=== PATIENT | male | born 1980 | race African-American/Black ===

== ENCOUNTER 2016-10-07 00:34 | Emergency (ER) | payer SELFPAY ==
[~2016-10-07 00:34] MED LIST: Z.0.NO CURRENT MEDS
[2016-10-07 00:38] VITALS: BP 181/114; PULSE 97; RESP 15; TEMP 99; O2SAT 100
[2016-10-07] MEDS ORDERED: SODIUM CHLOR 0.9% 1000 ML INJ 1,000 ML IV SCH (03:35)
--- NOTE | 2016-10-07 03:39 | PD ---
HPI Chief Complaint: Abdominal Pain Time Seen by Provider: 03:31 Travel History International Travel<30 days: No Contact w/Intl Traveler<30days: No History of Present Illness HPI 36-year-old male here for evaluation of epigastric abdominal pain. The patient reports having this pain for last 2 months which she describes as sharp, constant, associated with nausea, vomiting, and diarrhea. He denies history of abdominal surgeries. Patient reports that the pain worsened tonight so bad that he could not sleep. Pain radiates up into his mid chest. No history of cardiac disease. No history of abdominal surgeries. No fevers. He smokes cigarettes. He denies alcohol or illicit drug use. PFSH Past Medical History Tetanus Vaccination: > 5 Years Past Surgical History Surgical History: No Previous Surgery Social History Alcohol Use: No Tobacco Use: Yes (1ppd) Substance Use: No Allergies-Medications (Allergen,Severity, Reaction): Coded Allergies: No Known Allergies (Verified , 10/07/16) Reported Meds & Prescriptions Reported Meds & Active Scripts Active No Active Prescriptions or Reported Medications Review of Systems Except as stated in HPI: all other systems reviewed are Neg Physical Exam Narrative GENERAL: Well-developed, well-nourished, comfortable, no acute distress. SKIN: Focused skin assessment warm/dry. HEAD: Atraumatic. Normocephalic. EYES: Pupils equal and round. No scleral icterus. No injection or drainage. ENT: Mucous membranes pink and moist. CARDIOVASCULAR: Regular rate and rhythm. No murmur appreciated. RESPIRATORY: No accessory muscle use. Clear to auscultation. Breath sounds equal bilaterally. GASTROINTESTINAL: Abdomen soft, nondistended. Mild epigastric tenderness without peritoneal signs. Rest of abdomen is soft and nontender. Normal bowel sounds. MUSCULOSKELETAL: No obvious deformities. No clubbing. No cyanosis. No edema. NEUROLOGICAL: Awake and alert. No obvious cranial nerve deficits. Motor grossly within normal limits. Normal speech. PSYCHIATRIC: Appropriate mood and affect; insight and judgment normal. Data Data Last Documented VS Vital Signs Date Time Temp Pulse Resp B/P Pulse Ox O2 Delivery O2 Flow Rate FiO2 10/07/16 00:47 10/07/16 00:38 99.0 97 15 100 Room Air Orders Complete Blood Count With Diff (10/07/16 03:35) Comprehensive Metabolic Panel (10/07/16 03:35) Lipase (10/07/16 03:35) Prothrombin Time / Inr (Pt) (10/07/16 03:35) Act Partial Throm Time (Ptt) (10/07/16 03:35) Ct Abd/Pel W Iv Contrast(Rout) (10/07/16 03:35) Iv Access Insert/Monitor (10/07/16 03:35) Ecg Monitoring (10/07/16 03:35) Oximetry (10/07/16 03:35) Morphine Inj (Morphine Inj) (10/07/16 03:45) Ondansetron Inj (Zofran Inj) (10/07/16 03:45) Pantoprazole Inj (Protonix Inj) (10/07/16 03:45) Sodium Chlor 0.9% 1000 Ml Inj (Ns 1000 M (10/07/16 03:35) Sodium Chloride 0.9% Flush (Ns Flush) (10/07/16 03:45) Electrocardiogram (10/07/16 03:35) Al-Mag Hy-Si 40-40-4 Mg/Ml Liq (Mag-Al P (10/07/16 03:45) Lidocaine 2% Viscous (Xylocaine 2% Visco (10/07/16 03:45) Ckmb (Isoenzyme) Profile (10/07/16 03:35) Troponin I (10/07/16 03:35) CKMB (10/07/16 04:00) CKMB% (10/07/16 04:00) Iohexol 350 Inj (Omnipaque 350 Inj) (10/07/16 05:47) Labs Laboratory Tests Test 10/07/16 04:00 White Blood Count 8.1 TH/MM3 Red Blood Count 4.46 MIL/MM3 Hemoglobin 13.1 GM/DL Hematocrit 39.8 % Mean Corpuscular Volume 89.3 FL Mean Corpuscular Hemoglobin 29.3 PG Mean Corpuscular Hemoglobin 32.8 % Concent Red Cell Distribution Width 14.0 % Platelet Count 251 TH/MM3 Mean Platelet Volume 8.2 FL Neutrophils (%) (Auto) 60.0 % Lymphocytes (%) (Auto) 32.6 % Monocytes (%) (Auto) 4.8 % Eosinophils (%) (Auto) 1.7 % Basophils (%) (Auto) 0.9 % Neutrophils # (Auto) 4.9 TH/MM3 Lymphocytes # (Auto) 2.6 TH/MM3 Monocytes # (Auto) 0.4 TH/MM3 Eosinophils # (Auto) 0.1 TH/MM3 Basophils # (Auto) 0.1 TH/MM3 CBC Comment DIFF FINAL Differential Comment Prothrombin Time 10.9 SEC Prothromb Time International 1.0 RATIO Ratio Activated Partial 28.4 SEC Thromboplast Time Sodium Level 139 MEQ/L Potassium Level 3.3 MEQ/L Chloride Level 105 MEQ/L Carbon Dioxide Level 25.9 MEQ/L Anion Gap 8 MEQ/L Blood Urea Nitrogen 8 MG/DL Creatinine 0.89 MG/DL Estimat Glomerular Filtration 117 ML/MIN Rate Random Glucose 134 MG/DL Calcium Level 8.3 MG/DL Total Bilirubin 0.2 MG/DL Aspartate Amino Transf 13 U/L (AST/SGOT) Alanine Aminotransferase 22 U/L (ALT/SGPT) Alkaline Phosphatase 69 U/L Total Creatine Kinase 279 U/L Creatine Kinase MB 3.4 NG/ML Troponin I LESS THAN 0.02 NG/ML Total Protein 6.4 GM/DL Albumin 3.2 GM/DL Lipase 135 U/L MDM Medical Decision Making Medical Screen Exam Complete: Yes Emergency Medical Condition: Yes Medical Record Reviewed: Yes Differential Diagnosis Gastritis, peptic ulcer disease, pancreatitis, hepatobiliary disease, ACS less likely Narrative Course Vital signs reviewed. CBC is unremarkable. CMP is remarkable for potassium 3.3, otherwise unremarkable. Lipase is 135. Cardiac enzymes are negative. CT abdomen pelvis: FINDINGS: Examination of the lung bases demonstrates no abnormality. No pleural fluid is identified. No pulmonary nodules are present. The liver and spleen are free of focal defects. The gallbladder and pancreas demonstrate no abnormality. The adrenal glands are normal. The kidneys demonstrate no evidence of solid renal mass or hydronephrosis. No free fluid or abdominal masses are identified. No para-aortic adenopathy is seen. There is mild small bowel dilatation in the left side of the abdomen characteristic of ileus. Examination of the pelvis demonstrates no evidence of free fluid or pelvic mass. No abnormally enlarged inguinal or retroperitoneal lymph nodes are present. The bladder is unremarkable. CONCLUSION: 1. Findings of mild small bowel ileus. No signs of obstruction. Patient was made aware of all findings. He is tolerating orange soda in the emergency department without difficulty. He has not vomited here. His abdominal exam shows no peritoneal signs. He is stable for discharge home with outpatient follow-up. I will order a mandatory outpatient referral for gastroenterology for him. He was informed on when to return to the emergency department. He verbalizes understanding and agreement with plan. Diagnosis Primary Impression: Ileus Referrals: Melia Hernandez MD 1 week [employer] Primary Care Physician 3 days Additional Instructions: Follow-up with a primary care physician this week. Follow-up with case filler Dr. Hernandez orogastric urologist of your choice this week. Return to the emergency department for worsening symptoms or any other concerns. Scripts Metoclopramide (Reglan)10 Mg Tab10 Mg PO QID #30 TAB Ref 0 Prov:Noah Underwood MD 10/07/16 Disposition: 01 DISCHARGE HOME Condition: Stable Noah Underwood MD October 07, 2016 03:38
[2016-10-07] MEDS ORDERED: MORPHINE SULFATE 4 MG/ML INJ IV PUSH ONE (03:45)
[2016-10-07] MEDS ORDERED: ALUMINUM/MAGNESIUM/SIMETH 30 ML CUP PO ONE (03:45)
[2016-10-07] MEDS ORDERED: LIDOCAINE VISCOUS 2% SOLN 15 ML UDC PO ONE (03:45)
[2016-10-07] MEDS ORDERED: PANTOPRAZOLE SODIUM 40 MG VIAL IVP ONE (03:45)
[2016-10-07] MEDS ORDERED: ONDANSETRON HCL 4 MG/2 ML VIAL IVP ONE (03:45)
[2016-10-07] MEDS: SODIUM CHLORIDE 0.9% FLUSH 10 ML FLUSH IV FLUSH PRN ×2 (04:04→06:49)
[2016-10-07 04:32] LABS: APTT (PATIENT) 28.4 SEC (24.3-30.1); PROTHROMBIN TIME - PATIENT 10.9 SEC (9.8-11.6)
[2016-10-07 04:36] LABS: ALT (GPT) 22 U/L (12-78); ANION GAP 8 MEQ/L (5-15); AST (GOT) 13 U/L (15-37); BICARBONATE 25.9 MEQ/L (21.0-32.0); BLOOD UREA NITROGEN 8 MG/DL (7-18); CHLORIDE 105 MEQ/L (98-107); GLOMERULAR FILTRATION RATE 117 ML/MIN (>89); POTASSIUM 3.3 MEQ/L (3.5-5.1); SODIUM (NA) 139 MEQ/L (136-145)
[2016-10-07 04:39] LABS: AUTOMATED NEUTROPHIL # 4.9 TH/MM3 (1.8-7.7); BASOPHIL # 0.1 TH/MM3 (0-0.2); BASOPHIL % 0.9 % (0.0-2.0); EOSINOPHIL # 0.1 TH/MM3 (0-0.4); EOSINOPHIL % 1.7 % (0.0-4.0); HEMATOCRIT 39.8 % (39.0-51.0); HEMO FLAGS DIFF FINAL; LYMPH % 32.6 % (9.0-44.0); LYMPHOCYTE # 2.6 TH/MM3 (1.0-4.8); MEAN CELL VOLUME 89.3 FL (80.0-100.0); MEAN CORPUSCULAR HEMOGLOBIN 29.3 PG (27.0-34.0); MEAN CORPUSCULAR HGB CONC 32.8 % (32.0-36.0); MONO % 4.8 % (0.0-8.0); PLATELET COUNT 251 TH/MM3 (150-450); RED BLOOD COUNT 4.46 MIL/MM3 (4.50-5.90); WHITE BLOOD COUNT 8.1 TH/MM3 (4.0-11.0)
[2016-10-07 04:40] LABS: ALKALINE PHOSPHATASE 69 U/L (45-117); CREATINE KINASE 279 U/L (39-308); TOTAL BILIRUBIN ADULT 0.2 MG/DL (0.2-1.0)
[2016-10-07 04:53] LABS: CKMB 3.4 NG/ML (0.5-3.6)
[2016-10-07] MEDS ORDERED: IOHEXOL 350 MG/ML 10 ML VIAL (for RAD DIAG) IV ONE (05:47)
--- NOTE | 2016-10-07 06:27 | RADRPT ---
EXAM DATE/TIME: 10/07/2016 05:32 [facility] COMPARISON: No previous studies available for comparison. INDICATIONS : Abdomen pain. IV CONTRAST: 93 cc Omnipaque 350 (iohexol) IV ORAL CONTRAST: No oral contrast ingested. RADIATION DOSE: 5.68 CTDIvol (mGy) MEDICAL HISTORY : None SURGICAL HISTORY : None. ENCOUNTER: Initial ACUITY: 1 day PAIN SCALE: 8/10 LOCATION: Bilateral abdomen TECHNIQUE: Volumetric scanning of the abdomen and pelvis was performed. Using automated exposure control and ad justment of the mA and/or kV according to patient size, radiation dose was kept as low as reasonably achievable to obtain optimal diagnostic quality images. FINDINGS: Examination of the lung bases demonstrates no abnormality. No pleural fluid is identified. No pulmona ry nodules are present. The liver and spleen are free of focal defects. The gallbladder and pancreas demonstrate no abnormality. The adrenal glands are normal. The kidneys demonstrate no evidence of debra id renal mass or hydronephrosis. No free fluid or abdominal masses are identified. No para-aortic tena nopathy is seen. There is mild small bowel dilatation in the left side of the abdomen characteristic of ileus. Examination of the pelvis demonstrates no evidence of free fluid or pelvic mass. No abnormally enlarg ed inguinal or retroperitoneal lymph nodes are present. The bladder is unremarkable. CONCLUSION: 1. Findings of mild small bowel ileus. Reginald Hogan MD on October 07, 2016 at 6:23 Board Certified Radiologist. This report was verified electronically.
[2016-10-07] MEDS ORDERED: REGL10TA5 PO (06:37)
[2016-10-07] MEDS ORDERED: METOCLOPRAMIDE HCL 10 MG/2 ML VIAL IV PUSH ONE (06:45)
--- NOTE | 2016-10-07 18:41 | EKG ---
Date Performed: 10/07/2016 Time Performed: 04:30:42 PTAGE: 36 years EKG: Sinus rhythm NORMAL ECG NO PREVIOUS TRACING DOCTOR: Reginald Carter Interpretating Date/Time 10/07/2016 18:40:48
== END 2016-10-07 06:50 | disposition home or self-care (01) ==
LOC: NEPC 00:34
DX: K56.7 Ileus, unspecified (principal); F17.210 Nicotine dependence, cigarettes, uncomplicated
CPT/HCPCS: 74177; 80053; 82550; 82552; 83690; 84484; 85025; 85610; 85730; 93005; 96361; 96374; 96375; 99284; C9113; J2270; J2405; J2765; J7030; Q9967

== ENCOUNTER 2017-05-01 15:13 | Emergency (ER) | payer SELFPAY ==
[~2017-05-01] VITALS: Ht 170.2 cm; Wt 85.0 kg
[~2017-05-01 15:13] MED LIST changes: +REGL10TA5 PO; -Z.0.NO CURRENT MEDS
[2017-05-01 15:14] VITALS: BP 185/108; PULSE 117; RESP 18; TEMP 98.7; O2SAT 100
[2017-05-01] MEDS ORDERED: SODIUM CHLOR 0.9% 1000 ML INJ 1,000 ML IV SCH (17:27)
[2017-05-01] MEDS ORDERED: SODIUM CHLORIDE 0.9% FLUSH 10 ML FLUSH IV FLUSH PRN (17:30)
[2017-05-01] MEDS ORDERED: LIDOCAINE VISCOUS 2% SOLN 15 ML UDC PO ONE (17:30)
[2017-05-01] MEDS ORDERED: ONDANSETRON HCL 4 MG/2 ML VIAL IVP ONE (17:30)
[2017-05-01] MEDS ORDERED: DICYCLOMINE HCL 10 MG CAP PO ONE (17:30)
[2017-05-01] MEDS ORDERED: ALUMINUM/MAGNESIUM/SIMETH 30 ML CUP PO ONE (17:30)
[2017-05-01 18:13] LABS: AUTOMATED NEUTROPHIL # 4.8 TH/MM3 (1.8-7.7); BASOPHIL % 0.4 % (0.0-2.0); EOSINOPHIL # 0.1 TH/MM3 (0-0.4); EOSINOPHIL % 1.1 % (0.0-4.0); HEMATOCRIT 43.6 % (39.0-51.0); HEMO FLAGS DIFF FINAL; LYMPHOCYTE # 2.8 TH/MM3 (1.0-4.8); MEAN CELL VOLUME 91.1 FL (80.0-100.0); MEAN CORPUSCULAR HEMOGLOBIN 31.4 PG (27.0-34.0); MEAN CORPUSCULAR HGB CONC 34.5 % (32.0-36.0); MONO % 7.2 % (0.0-8.0); NEUT % 57.3 % (16.0-70.0); PLATELET COUNT 251 TH/MM3 (150-450); RED BLOOD COUNT 4.78 MIL/MM3 (4.50-5.90); WHITE BLOOD COUNT 8.4 TH/MM3 (4.0-11.0)
[2017-05-01 19:11] LABS: ALT (GPT) 25 U/L (12-78); ANION GAP 7 MEQ/L (5-15); AST (GOT) 19 U/L (15-37); BICARBONATE 26.4 MEQ/L (21.0-32.0); BLOOD UREA NITROGEN 6 MG/DL (7-18); CHLORIDE 106 MEQ/L (98-107); GLOMERULAR FILTRATION RATE 140 ML/MIN (>89); POTASSIUM 3.7 MEQ/L (3.5-5.1); SODIUM (NA) 139 MEQ/L (136-145)
[2017-05-01 19:14] LABS: ALKALINE PHOSPHATASE 74 U/L (45-117); TOTAL BILIRUBIN ADULT 0.2 MG/DL (0.2-1.0)
[2017-05-01] MEDS ORDERED: PROM25TA10 PO (19:19)
[2017-05-01] MEDS ORDERED: DICY10 PO (19:19)
--- NOTE | 2017-05-01 19:19 | PD ---
HPI Chief Complaint: Abdominal Pain Time Seen by Provider: 17:01 Travel History International Travel<30 days: No Contact w/Intl Traveler<30days: No Traveled to known affect area: No History of Present Illness HPI Patient is 36 years old and complains of nausea vomiting abdominal pain for 3 days. He has had no fever. He reports similar episode occurred about 2 years prior and he believes might be pancreatitis however is not sure. Appetite has been decreased. He reports constipation for 2 days. Positive flatus. severity moderate. location is left upper abdomen. PFSH Past Medical History Medical History: Denies Significant Hx Past Surgical History Surgical History: No Previous Surgery Social History Alcohol Use: No Tobacco Use: Yes (1ppd) Substance Use: No Allergies-Medications (Allergen,Severity, Reaction): Coded Allergies: No Known Allergies (Verified Adverse Reaction, Unknown, 05/01/17) Reported Meds & Prescriptions Reported Meds & Active Scripts Active Bentyl (Dicyclomine HCl) 10 Mg Cap 10 Mg PO TID Phenergan (Promethazine HCl) 25 Mg Tablet 25 Mg PO Q6H PRN Reglan (Metoclopramide HCl) 10 Mg Tab 10 Mg PO QID Review of Systems Except as stated in HPI: all other systems reviewed are Neg General / Constitutional: No: Fever Gastrointestinal: Positive: Nausea, Vomiting, Abdominal Pain, No: Diarrhea Physical Exam Narrative GENERAL: 36-year-old male well-nourished well-developed mild distress SKIN: Focused skin assessment warm/dry. HEAD: Atraumatic. Normocephalic. EYES: Pupils equal and round. No scleral icterus. No injection or drainage. ENT: No nasal bleeding or discharge. Mucous membranes pink and moist. NECK: Trachea midline. No JVD. CARDIOVASCULAR: Regular rate and rhythm. No murmur appreciated. RESPIRATORY: No accessory muscle use. Clear to auscultation. Breath sounds equal bilaterally. GASTROINTESTINAL: Soft. Diffuse tenderness nonspecific. MUSCULOSKELETAL: No obvious deformities. No clubbing. No cyanosis. No edema. NEUROLOGICAL: Awake and alert. No obvious cranial nerve deficits. Motor grossly within normal limits. Normal speech. PSYCHIATRIC: Appropriate mood and affect; insight and judgment normal. Data Data Last Documented VS Vital Signs Date Time Temp Pulse Resp B/P (MAP) Pulse Ox O2 Delivery O2 Flow Rate FiO2 05/01/17 19:26 85 15 174/102 (126) 99 05/01/17 17:54 Room Air 05/01/17 15:14 98.7 Orders Orders Complete Blood Count With Diff (05/01/17 17:27) Comprehensive Metabolic Panel (05/01/17 17:27) Lipase (05/01/17 17:27) Lactic Acid (05/01/17 17:27) Iv Access Insert/Monitor (05/01/17 17:27) Ecg Monitoring (05/01/17 17:27) Oximetry (05/01/17 17:27) Ondansetron Inj (Zofran Inj) (05/01/17 17:30) Sodium Chlor 0.9% 1000 Ml Inj (Ns 1000 M (05/01/17 17:27) Sodium Chloride 0.9% Flush (Ns Flush) (05/01/17 17:30) Dicyclomine (Bentyl) (05/01/17 17:30) Al-Mag Hy-Si 40-40-4 Mg/Ml Liq (Mag-Al P (05/01/17 17:30) Lidocaine 2% Viscous (Xylocaine 2% Visco (05/01/17 17:30) Ed Discharge Order (05/01/17 19:19) Pantoprazole Inj (Protonix Inj) (05/01/17 19:45) Morphine Inj (Morphine Inj) (05/01/17 19:45) Labs Laboratory Tests Test 05/01/17 17:50 05/01/17 18:45 White Blood Count 8.4 TH/MM3 Red Blood Count 4.78 MIL/MM3 Hemoglobin 15.0 GM/DL Hematocrit 43.6 % Mean Corpuscular Volume 91.1 FL Mean Corpuscular Hemoglobin 31.4 PG Mean Corpuscular Hemoglobin Concent 34.5 % Red Cell Distribution Width 14.0 % Platelet Count 251 TH/MM3 Mean Platelet Volume 7.8 FL Neutrophils (%) (Auto) 57.3 % Lymphocytes (%) (Auto) 34.0 % Monocytes (%) (Auto) 7.2 % Eosinophils (%) (Auto) 1.1 % Basophils (%) (Auto) 0.4 % Neutrophils # (Auto) 4.8 TH/MM3 Lymphocytes # (Auto) 2.8 TH/MM3 Monocytes # (Auto) 0.6 TH/MM3 Eosinophils # (Auto) 0.1 TH/MM3 Basophils # (Auto) 0.0 TH/MM3 CBC Comment DIFF FINAL Differential Comment Lactic Acid Level 0.7 mmol/L Blood Urea Nitrogen 6 MG/DL Creatinine 0.76 MG/DL Random Glucose 128 MG/DL Total Protein 6.3 GM/DL Albumin 3.2 GM/DL Calcium Level 7.7 MG/DL Alkaline Phosphatase 74 U/L Aspartate Amino Transf (AST/SGOT) 19 U/L Alanine Aminotransferase (ALT/SGPT) 25 U/L Total Bilirubin 0.2 MG/DL Sodium Level 139 MEQ/L Potassium Level 3.7 MEQ/L Chloride Level 106 MEQ/L Carbon Dioxide Level 26.4 MEQ/L Anion Gap 7 MEQ/L Estimat Glomerular Filtration Rate 140 ML/MIN Lipase 156 U/L MDM Medical Decision Making Medical Screen Exam Complete: Yes Emergency Medical Condition: Yes Medical Record Reviewed: Yes Differential Diagnosis Constipation, Gastritis, Acute Cholecystitis, Biliary Colic, Pancreatitis, PHILLIPS , Hepatitis, Bowel Obstruction, Cystitis, Mesenteric Ischemia, AAA, Appendicitis , Renal Stone/Hydronephrosis, GERD, perforated viscous Narrative Course CBC & BMP Diagram 05/01/17 17:50 05/01/17 18:45 Total Protein 6.3 L, Albumin 3.2 L, Calcium Level 7.7 L, Alkaline Phosphatase 74 , Aspartate Amino Transf (AST/SGOT) 19, Alanine Aminotransferase (ALT/SGPT) 25, Total Bilirubin 0.2 Lipase is normal Pt reassed and reports marginal improvement with normal work up including normal lactic acid and a similar complaint in the past with a normal CT then, CT considered reasonably safely deferable today Presentation concerning for pud/gastritis. constipation with the recent is a consideration as well. Diagnosis Primary Impression: Nausea & vomiting Qualified Codes: R11.2 - Nausea with vomiting, unspecified Additional Impression: Abdominal pain Qualified Codes: R10.9 - Unspecified abdominal pain Referrals: [facility] 2 days Med/Other Pt SpecificInfo: Prescription(s) given Scripts Dicyclomine (Bentyl) 10 Mg Cap 10 MG PO TID for Bowel Management, #20 CAP 0 Refills Prov: Dewayne Bowie MD 05/01/17 Promethazine (Phenergan) 25 Mg Tablet 25 MG PO Q6H Y for NAUSEA OR VOMITING, #10 TAB 0 Refills Prov: Dewayne Bowie MD 05/01/17 Disposition: 01 DISCHARGE HOME Condition: Stable Dewayne Bowie MD May 01, 2017 19:19
[2017-05-01 19:26] VITALS: BP 174/102; PULSE 85; RESP 15; O2SAT 99
[2017-05-01] MEDS ORDERED: PANTOPRAZOLE SODIUM 40 MG VIAL IVP ONE (19:45)
[2017-05-01] MEDS ORDERED: MORPHINE SULFATE 4 MG/ML INJ IV PUSH ONE (19:45)
== END 2017-05-01 20:23 | disposition home or self-care (01) ==
LOC: NEPD 15:13
DX: R11.2 Nausea with vomiting, unspecified (principal); R10.9 Unspecified abdominal pain; F17.200 Nicotine dependence, unspecified, uncomplicated; K59.00 Constipation, unspecified
CPT/HCPCS: 80053; 83605; 83690; 85025; 96374; 96375; 99284; C9113; J2270; J2405; J7030

== ENCOUNTER 2017-10-24 19:53 | Emergency (ER) | payer SELFPAY ==
[~2017-10-24 19:53] MED LIST changes: +DICY10 PO; +PROM25TA10 PO
[2017-10-24] MEDS ORDERED: IOHEXOL 350 MG/ML 10 ML VIAL (for RAD DIAG) IVCONTRAST ONE (19:54)
[2017-10-24 20:40] VITALS: BP 154/103; PULSE 115; RESP 14; TEMP 99.5; O2SAT 99
[2017-10-24] MEDS ORDERED: SODIUM CHLOR 0.9% 1000 ML INJ 1,000 ML IV ONE (21:50)
[2017-10-24] MEDS ORDERED: SODIUM CHLOR 0.9% 1000 ML INJ 800 ML IV ONE (21:50)
--- NOTE | 2017-10-24 21:55 | PD ---
HPI Chief Complaint: Oral / Dental Pain or Problem Time Seen by Provider: 21:47 Travel History International Travel<30 days: No Contact w/Intl Traveler<30days: No Traveled to known affect area: No History of Present Illness HPI 37-year-old male here for evaluation of upper dental pain, swelling, purulent drainage. Patient states that 3 days ago someone stood up quickly and their head struck his upper teeth. He states that there was pain initially, and over the last 3 days he has had increasing pain and swelling. Pain is moderate to severe, constant, worse with palpation. He has also had subjective fevers and chills. He states he feels as though his nose is congested. No respiratory difficulty or difficulty swallowing. He smokes marijuana. Denies IV drug use. PFS Past Medical History Immunizations Current: Yes Tetanus Vaccination: Unknown Influenza Vaccination: No Social History Alcohol Use: No Tobacco Use: Yes (1ppd) Substance Use: No Allergies-Medications (Allergen,Severity, Reaction): Coded Allergies: No Known Allergies (Verified Adverse Reaction, Unknown, 10/24/17) Reported Meds & Prescriptions Reported Meds & Active Scripts Active Bentyl (Dicyclomine HCl) 10 Mg Cap 10 Mg PO TID Phenergan (Promethazine HCl) 25 Mg Tablet 25 Mg PO Q6H PRN Reglan (Metoclopramide HCl) 10 Mg Tab 10 Mg PO QID Review of Systems Except as stated in HPI: all other systems reviewed are Neg Physical Exam Narrative GENERAL: Well-developed, well-nourished, awake, alert, no apparent distress. SKIN: Focused skin assessment warm/dry. HEAD: Atraumatic. Normocephalic. EYES: Pupils equal, round, 3 mm, reactive to light. EOMI. No scleral icterus. No injection or drainage. ENT: No nasal bleeding or discharge. Mucous membranes pink and moist. Very poor dentition. Significant upper/frontal gingival edema with mild purulence when palpated. Tooth #8 and 9 are moderately loose. No drooling or stridor. No trismus. Normal pharynx. NECK: Trachea midline. No JVD. No nuchal rigidity. CARDIOVASCULAR: Tachycardic, rate 113, regular. No murmur appreciated. RESPIRATORY: No accessory muscle use. Clear to auscultation. Breath sounds equal bilaterally. GASTROINTESTINAL: Abdomen soft, non-tender, nondistended. MUSCULOSKELETAL: No obvious deformities. No clubbing. No cyanosis. No edema. NEUROLOGICAL: Awake and alert. No obvious cranial nerve deficits. Motor grossly within normal limits. Normal speech. PSYCHIATRIC: Appropriate mood and affect; insight and judgment normal. Data Data Last Documented VS Vital Signs Date Time Temp Pulse Resp B/P (MAP) Pulse Ox O2 Delivery O2 Flow Rate FiO2 10/24/17 23:32 16 10/24/17 22:56 89 98 Room Air 10/24/17 20:40 99.5 154/103 (120) Orders Orders Sepsis Workup Initiated (10/24/17 ) Complete Blood Count With Diff (10/24/17 21:50) Comprehensive Metabolic Panel (10/24/17 21:50) Prothrombin Time / Inr (Pt) (10/24/17 21:50) Act Partial Throm Time (Ptt) (10/24/17 21:50) Lactic Acid Sepsis Protocol (10/24/17 21:50) Blood Culture (10/24/17 21:50) Ecg Monitoring (10/24/17 21:50) Iv Access Insert/Monitor (10/24/17 21:50) Oximetry (10/24/17 21:50) Acetaminophen (Tylenol) (10/24/17 22:00) Sodium Chlor 0.9% 1000 Ml Inj (Ns 1000 M (10/24/17 21:50) Sodium Chlor 0.9% 1000 Ml Inj (Ns 1000 M (10/24/17 21:50) Clindamycin 900 Mg/Ns Premix (Cleocin 90 (10/24/17 22:00) Ketorolac Inj (Toradol Inj) (10/24/17 22:00) Ct Facial Bones W Iv Contrast (10/24/17 ) Iohexol 350 Inj (Omnipaque 350 Inj) (10/24/17 19:54) Labs Laboratory Tests Test 10/24/17 22:20 White Blood Count 11.6 TH/MM3 Red Blood Count 4.56 MIL/MM3 Hemoglobin 13.1 GM/DL Hematocrit 40.2 % Mean Corpuscular Volume 88.1 FL Mean Corpuscular Hemoglobin 28.8 PG Mean Corpuscular Hemoglobin Concent 32.7 % Red Cell Distribution Width 14.3 % Platelet Count 270 TH/MM3 Mean Platelet Volume 7.6 FL Neutrophils (%) (Auto) 77.5 % Lymphocytes (%) (Auto) 17.3 % Monocytes (%) (Auto) 4.2 % Eosinophils (%) (Auto) 0.4 % Basophils (%) (Auto) 0.6 % Neutrophils # (Auto) 9.0 TH/MM3 Lymphocytes # (Auto) 2.0 TH/MM3 Monocytes # (Auto) 0.5 TH/MM3 Eosinophils # (Auto) 0.0 TH/MM3 Basophils # (Auto) 0.1 TH/MM3 CBC Comment DIFF FINAL Differential Comment Prothrombin Time 10.0 SEC Prothromb Time International Ratio 1.0 RATIO Activated Partial Thromboplast Time 26.8 SEC Blood Urea Nitrogen 10 MG/DL Creatinine 0.86 MG/DL Random Glucose 144 MG/DL Total Protein 6.7 GM/DL Albumin 3.2 GM/DL Calcium Level 8.3 MG/DL Alkaline Phosphatase 71 U/L Aspartate Amino Transf (AST/SGOT) 9 U/L Alanine Aminotransferase (ALT/SGPT) 18 U/L Total Bilirubin 0.2 MG/DL Sodium Level 139 MEQ/L Potassium Level 4.0 MEQ/L Chloride Level 105 MEQ/L Carbon Dioxide Level 26.7 MEQ/L Anion Gap 7 MEQ/L Estimat Glomerular Filtration Rate 121 ML/MIN Lactic Acid Level 1.2 mmol/L MDM Medical Decision Making Medical Screen Exam Complete: Yes Emergency Medical Condition: Yes Differential Diagnosis Dental abscess, facial osteomyelitis, acute necrotizing ulcerative gingivitis, cavernous sinus thrombosis less likely Narrative Course Initial vital signs show heart rate 115, blood pressure 154/103, pulse ox 98% on room air, oral temp of 99.5F. CBC: WBC 11.6, hemoglobin 13.1, hematocrit 40.2, platelets 270, neutrophils 77.5 %. CMP is unremarkable. Lactic acid is 1.2. Patient was given 2 liters of NS IV, a dose of 900 mg of IV clindamycin, and IV Toradol. 1:10 AM: The patient was seen leaving the emergency department stating that he needed to smoke a cigarette. CT facial bones with IV contrast: CONCLUSION: 1. Mild soft tissue prominence over the right side of the mandible with no visualized abscess. 1:40 AM: The patient is not in his exam room. He was deemed to be eloped. I attempted to call the patient on the phone number on record , however the person that answered stated that this was a wrong number. Diagnosis Primary Impression: Left against medical advice Additional Impression: Dental infection Disposition: 07 AGAINST MEDICAL ADVICE Condition: Stable Noah Underwood MD October 24, 2017 21:55
[2017-10-24] MEDS ORDERED: CLINDAMYCIN 900 MG/NS PREMIX 50 ML IV ONE (22:00)
[2017-10-24] MEDS ORDERED: ACETAMINOPHEN 325 MG TAB PO ONE (22:00)
[2017-10-24] MEDS ORDERED: KETOROLAC TROMETHAMINE 30 MG/ML (IVP) VIAL IV PUSH ONE (22:00)
[2017-10-24 22:34] LABS: BASOPHIL # 0.1 TH/MM3 (0-0.2); BASOPHIL % 0.6 % (0.0-2.0); EOSINOPHIL % 0.4 % (0.0-4.0); HEMATOCRIT 40.2 % (39.0-51.0); HEMOGLOBIN 13.1 GM/DL (13.0-17.0); LYMPH % 17.3 % (9.0-44.0); MEAN CELL VOLUME 88.1 FL (80.0-100.0); MEAN CORPUSCULAR HEMOGLOBIN 28.8 PG (27.0-34.0); MEAN CORPUSCULAR HGB CONC 32.7 % (32.0-36.0); MEAN PLATELET VOLUME 7.6 FL (7.0-11.0); MONO % 4.2 % (0.0-8.0); MONOCYTE # 0.5 TH/MM3 (0-0.9); NEUT % 77.5 % (16.0-70.0); PLATELET COUNT 270 TH/MM3 (150-450); RED BLOOD COUNT 4.56 MIL/MM3 (4.50-5.90); RED CELL DISTRIBUTION WIDTH 14.3 % (11.6-17.2); WHITE BLOOD COUNT 11.6 TH/MM3 (4.0-11.0)
[2017-10-24 22:54] LABS: ALBUMIN 3.2 GM/DL (3.4-5.0); AST (GOT) 9 U/L (15-37); BICARBONATE 26.7 MEQ/L (21.0-32.0); BLOOD UREA NITROGEN 10 MG/DL (7-18); CALCIUM 8.3 MG/DL (8.5-10.1); CHLORIDE 105 MEQ/L (98-107); CREATININE 0.86 MG/DL (0.60-1.30); GLOMERULAR FILTRATION RATE 121 ML/MIN (>89); GLUCOSE,RANDOM 144 MG/DL (74-106); SODIUM (NA) 139 MEQ/L (136-145)
[2017-10-24 22:55] LABS: ALT (GPT) 18 U/L (12-78)
[2017-10-24 22:56] VITALS: PULSE 89; RESP 16; O2SAT 98
[2017-10-24 22:57] LABS: ALKALINE PHOSPHATASE 71 U/L (45-117); TOTAL BILIRUBIN ADULT 0.2 MG/DL (0.2-1.0); TOTAL PROTEIN 6.7 GM/DL (6.4-8.2)
[2017-10-24 23:32] VITALS: RESP 16
--- NOTE | 2017-10-25 01:37 | RADRPT ---
EXAM DATE/TIME: 10/25/2017 00:52 [facility] COMPARISON: No previous studies available for comparison. INDICATIONS : Upper dental swelling. Possible abscess. IV CONTRAST: 81 cc Omnipaque 350 (iohexol) IV RADIATION DOSE: 56.92 CTDIvol (mGy) MEDICAL HISTORY : None SURGICAL HISTORY : None. ENCOUNTER: Initial ACUITY: 3 days PAIN SCALE: 6/10 LOCATION: facial TECHNIQUE: Volumetric scanning of the facial bones was performed. Using automated exposure control and adjustme nt of the mA and/or kV according to patient size, radiation dose was kept as low as reasonably achiev able to obtain optimal diagnostic quality images. DICOM format image data is available electronicall y for review and comparison. FINDINGS: ORBITS: The orbital and infraorbital osseous structures are intact. The retroconal structures have a normal configuration. No radiopaque foreign bodies are seen. NASAL BONE: The nasal bone and maxillary spine are intact ZYGOMATIC ARCHES: Symmetric without evidence of fracture. SINUSES: The maxillary, ethmoid and frontal sinuses are intact. No air-fluid levels seen. NASAL CAVITY: The nasal septum is intact and midline. The lacrimal ducts are intact. SOFT TISSUES: No radiopaque foreign bodies seen. There is mild soft tissue prominence over the right side of the ma ndible with no visualized abscess. INTRACRANIAL: No intracranial air seen. CRIBIFORM PLATE: Grossly intact. CONCLUSION: 1. Mild soft tissue prominence over the right side of the mandible with no visualized abscess. Liang Gibson MD on October 25, 2017 at 1:33 Board Certified Radiologist. This report was verified electronically.
== END 2017-10-25 03:08 | disposition left against medical advice (07) ==
LOC: NEPD 19:53
DX: K04.7 Periapical abscess without sinus (principal); F17.210 Nicotine dependence, cigarettes, uncomplicated; F12.90 Cannabis use, unspecified, uncomplicated
CPT/HCPCS: 70487; 80053; 83605; 85025; 85610; 85730; 87040; 96361; 96374; 96375; 99284; J1885; J7030; Q9967